=== PATIENT | female | born 1955 | race Caucasian/White ===

== ENCOUNTER 2016-06-23 14:56 | Emergency (ER) | payer OTHER ==
[~2016-06-23 14:56] MED LIST: ASPIRIN CHEWABL81 MG PO; CELEXA20 MG PO; DILANTIN100 MG PO; FIORICET1 EACH PO; FOLIC ACID1 MG PO; GLUCOPHAGE500 MG PO; LASIX20 MG PO; LEVAQUIN750 MG PO; MICRO-K10 MEQ PO; NEURONTIN300 MG PO; NORCO 5-325 TA1 EACH PO; NORTRIPTYLINE 225 MG PO; TOPAMAX25 MG PO; VITAMIN D; ZESTORETIC 20-1 EAC1 PO; ZYRTEC10 MG PO
[2016-06-23 17:44] LABS: BASOPHIL 0.5 % (0-2); EOSINOPHIL 11.5 % (0-5); HGB 13.7 g/dl (12.5-16.0); LYMPHOCYTE 22.6 % (15-48); MCH 30.1 pg (25.0-31.0); MCHC 33.4 g/dL (32.0-36.0); MCV 90.1 fL (78.0-100.0); MPV 11.2 fL (6.0-9.5); NEUTROPHIL 60.4 % (41-80); PLT 167 K/uL (150-400); RBC 4.55 M/uL (4.20-5.40); RDW 14.2 % (11.5-14.0)
[2016-06-23 17:58] LABS: ALBUMIN 4.5 g/dL (3.4-4.8); BILIRUBIN - TOTAL 0.3 mg/dL (0.1-1.0); CREATININE 0.9 mg/dL (0.5-1.0); GLOBULIN (CALCULATION) 3.2 g/dL (2.2-4.2); POTASSIUM 4.1 mmol/L (3.5-5.1); TOTAL PROTEIN 7.7 g/dL (6.4-8.3)
[2016-12-05] MEDS ORDERED: VIBRAMYCIN100 MG PO (14:00)
[2016-12-05] MEDS ORDERED: KLOR-CON M 1010 MEQ PO (14:04)
[2016-12-05] MEDS ORDERED: METFORMIN HCL500 MG PO (14:04)
[2016-12-05] MEDS ORDERED: DILANTIN100 MG PO (14:05)
[2016-12-05] MEDS ORDERED: NORTRIPTYLINE 225 MG PO (14:05)
[2016-12-05] MEDS ORDERED: CELEXA20 MG PO (14:05)
[2016-12-05] MEDS ORDERED: TOPAMAX25 MG PO (14:05)
[2016-12-05] MEDS ORDERED: CETIRIZINE HCL10 MG PO (14:06)
[2016-12-05] MEDS ORDERED: NEURONTIN300 MG PO (14:06)
[2016-12-05] MEDS ORDERED: NORCO 10-325 T1 EACH PO (14:06)
[2016-12-05] MEDS ORDERED: LISINOPRIL-HCT1 EAC2 PO (14:07)
[2016-12-05] MEDS ORDERED: FOLIC ACID1 M1 PO (14:07)
[2016-12-05] MEDS ORDERED: ASPIRIN CHEWABL81 MG PO (14:07)
[2016-12-05] MEDS ORDERED: VITAMIN D2000 UNI1 PO (14:08)
[2016-12-05] MEDS ORDERED: LASIX20 MG PO (14:08)
[2016-12-05] MEDS ORDERED: FIORICET1 EACH PO (14:09)
== END 2016-06-23 18:43 | disposition home or self-care (01) ==
LOC: FER 14:56
PROVIDERS: Internal Medicine
DX: G51.0 Bell's palsy (principal); E11.9 Type 2 diabetes mellitus without complications; I10 Essential (primary) hypertension; G40.909 Epilepsy, unspecified, not intractable, without status epilepticus; J45.909 Unspecified asthma, uncomplicated; Z88.0 Allergy status to penicillin; Z79.84 Long term (current) use of oral hypoglycemic drugs; Z79.899 Other long term (current) drug therapy
CPT/HCPCS: 36415; 70450; 80053; 85025

== ENCOUNTER 2016-12-18 23:50 | Emergency (ER) | payer OTHER ==
[~2016-12-18 23:50] MED LIST changes: +CETIRIZINE HCL10 MG PO; +FOLIC ACID1 M1 PO; +KLOR-CON M 1010 MEQ PO; +LISINOPRIL-HCT1 EAC2 PO; +METFORMIN HCL500 MG PO; +NORCO 10-325 T1 EACH PO; +VIBRAMYCIN100 MG PO; +VITAMIN D2000 UNI1 PO
[2016-12-19 01:38] LABS: BASOPHIL 0.1 % (0-2); EOSINOPHIL 0 % (0-5); HCT 29.3 % (37.0-47.0); HGB 10.3 g/dl (12.5-16.0); MCH 33.4 pg (25.0-31.0); MCHC 35.2 g/dL (32.0-36.0); MCV 95.1 fL (78.0-100.0); MONOCYTE 5.8 % (0-12); MPV 11.5 fL (6.0-9.5); NEUTROPHIL 90.1 % (41-80); RBC 3.08 M/uL (4.20-5.40); RDW 23.3 % (11.5-14.0); WBC 8.8 K/uL (4.0-10.5)
[2016-12-19 01:39] LABS: PLT 41 K/uL (150-400)
[2016-12-19 01:52] LABS: ALBUMIN 2.9 g/dL (3.4-4.8); BILIRUBIN - TOTAL 0.5 mg/dL (0.1-1.0); CREATININE 1.4 mg/dL (0.5-1.0); GLOBULIN (CALCULATION) 3.5 g/dL (2.2-4.2); POTASSIUM 3.1 mmol/L (3.5-5.1); TOTAL PROTEIN 6.4 g/dL (6.4-8.3)
[2016-12-19 02:27] LABS: LACTIC ACID 2.1 mmol/L (0.5-2.2)
[2016-12-19 02:37] LABS: BILIRUBIN NEGATIVE (NEGATIVE); BLOOD NEGATIVE Ery/uL (NEGATIVE); CLARITY CLEAR (CLEAR); COLOR YELLOW (YELLOW); GLUCOSE (U) NORMAL (NORMAL); KETONE (U) NEGATIVE (NEGATIVE); LEUKOCYTES NEGATIVE Leu/uL (NEGATIVE); NITRITE NEGATIVE (NEGATIVE); PROTEIN NEGATIVE (NEGATIVE); UROBILINOGEN 0.2 mg/dL (0.2-1.0); pH 5.5 (5.0-9.0)
== END 2016-12-19 07:30 | disposition other institution (70) ==
LOC: FER 23:50 → FTCU 12-19 02:26 → FER 12-19 07:30
PROVIDERS: Emergency Medicine
DX: A41.9 Sepsis, unspecified organism (principal); L03.116 Cellulitis of left lower limb; C50.919 Malignant neoplasm of unspecified site of unspecified female breast; Z87.891 Personal history of nicotine dependence; Z79.899 Other long term (current) drug therapy
CPT/HCPCS: 36415; 71010; 80053; 81003; 83605; 85025; 86403; 87040; 87077